=== PATIENT | female | born 1990 | race Caucasian/White ===

== ENCOUNTER 2022-10-02 07:08 | Outpatient (CLI) | payer SELFPAY ==
--- NOTE | 2022-10-02 07:15 | CRLHL7_ITS ---
For Patients: As a result of the Cures Act, medical imaging exams and procedure reports are released immediately into your electronic medical record. You may view this report before your referring provider. If you have questions, please contact your health care provider. INDICATION: First trimester scan, establish dates. COMPARISON: None. TECHNIQUE: Real-time salinas-scale imaging of the pelvis was performed. FINDINGS: Sonographic imaging demonstrates a single living intrauterine gestation. The embryo demonstrates a regular cardiac rate measuring 166 beats per minute. The embryo`s crown-rump length measurement of 4.2 cm corresponds to a gestational age of 11 weeks 0 days with a sonographic due date of 04/23/2023. There is a normal-appearing yolk sac which measures 5.1 millimeters on image 6144, series 1. There are no gross abnormalities noted within the embryo at this early state of development. The gestational sac has a normal appearance. There is a 2.5 x 1.2 x 1.5 cm right-sided perigestational hemorrhage. The amount of fluid within the sac appears appropriate for gestational age. The cervix is closed. The myometrium appears normal. The ovaries are not visualized. There are no suspicious fluid collections noted in the cul-de-sac. IMPRESSION: Single living intrauterine with sonographic gestational age 11 weeks 0 days and sonographic due date 04/23/2023. Right-sided subchorionic hemorrhage measuring 2.5 x 1.2 x 1.5 cm. Dictated by Herb Swanson MD @ 10/02/2022 9:28:33 AM (Electronically Signed)
== END 2022-10-02 07:09 | disposition home or self-care (01) ==
PROVIDERS: Visit Provider Physician Assistant
DX: Z34.91 Encounter for supervision of normal pregnancy, unspecified, first trimester (principal); Z3A.08 8 weeks gestation of pregnancy
CPT/HCPCS: 76817

== ENCOUNTER 2022-10-02 08:35 | Outpatient (CLI) | payer SELFPAY ==
[2022-10-02 15:22] LABS: Chlamydia DNA Amplified* NOT DETECTED (No Detected); GC DNA Amplified* NOT DETECTED (No Detected)
== END 2022-10-02 08:36 | disposition home or self-care (01) ==
PROVIDERS: Visit Provider Registered Nurse
DX: Z34.90 Encounter for supervision of normal pregnancy, unspecified, unspecified trimester (principal)
CPT/HCPCS: 86592; 86703; 86762; 86787; 86803; 86850; 86870; 86880; 86900; 86901; 86905; 86906; 87086; 87340; 87491; 87591

== ENCOUNTER 2022-11-21 13:46 | Outpatient (CLI) | payer SELFPAY ==
--- NOTE | 2022-11-21 14:00 | CRLHL7_ITS ---
For Patients: As a result of the Century Cures Act, medical imaging exams and procedure reports are released immediately into your electronic medical record. You may view this report before your referring provider. If you have questions, please contact your health care provider. INDICATION: Evaluate anatomy. COMPARISON: 10/02/2022 TECHNIQUE: Real time salinas scale imaging of the fetus was performed as well as color Doppler analysis of the umbilical vessels. FINDINGS: Sonographic imaging demonstrates a single living intrauterine gestation. Fetus demonstrates a regular cardiac rate of 159 beats per minute. Fetus has a variable position. The placenta lies posteriorly without evidence of placenta previa. The edge of the placenta is located 7.2 cm 7.2 cm from the placenta. Amniotic fluid volume appears normal. Single deepest vertical pocket: 4.5 cm. The cervix is closed and measures 4.1 cm in length. The composite ultrasound gestational age is calculated at 18 weeks 3 days with an estimated sonographic due date of 04/21/2023. The estimated weight is 219 grams which lies at the 36th %. The following biometric measurements were obtained: Biparietal diameter: 4.0 cm/18 weeks 1 day 53rd% Head circumference: 15.6 cm/18 weeks 4 days 63rd% Abdominal circumference: 12.3 cm/18 weeks 0 days 41st% Femur length: 2.6 cm/18 weeks 0 days 35th% The HC/AC ratio measures: 1.27 range (1.08-1.27) On anatomic survey, there is a normal appearance of the cerebral ventricles, cavum septi pellucidi, cisterna magna and cerebellum. Incomplete visualization facial views due to position. The cervical, thoracic and lumbar spine are well visualized and appear normal. Incomplete visualization of the cardiac views due to position. The diaphragm and stomach appear normal. The kidneys and bladder also appear normal. There is a normal three-vessel cord and cord insertion site. The four extremities appear normal. IMPRESSION: Concordance of clinical and sonographic dating. Incomplete visualization of the facial structures and heart structures due to position. Remainder of the anatomic survey is normal. Short-term follow-up recommended. Dictated by Herb Swanson MD @ 11/22/2022 9:52:28 AM (Electronically Signed)
== END 2022-11-21 13:47 | disposition home or self-care (01) ==
LOC: US 13:47
PROVIDERS: Visit Provider Physician Assistant
DX: Z34.92 Encounter for supervision of normal pregnancy, unspecified, second trimester (principal); Z3A.18 18 weeks gestation of pregnancy
CPT/HCPCS: 76805

== ENCOUNTER 2022-12-06 10:48 | Outpatient (CLI) | payer SELFPAY ==
--- NOTE | 2022-12-06 11:00 | CRLHL7_ITS ---
For Patients: As a result of the Century Cures Act, medical imaging exams and procedure reports are released immediately into your electronic medical record. You may view this report before your referring provider. If you have questions, please contact your health care provider. INDICATION: FOLLOW UP FOR MISSED ANATOMY COMPARISON: 11/21/2022 TECHNIQUE: Real time salinas scale imaging of the fetus was performed. FINDINGS: Sonographic imaging demonstrates a single living intrauterine gestation. Fetus demonstrates a regular cardiac rate of 152 beats per minute. Fetus has a variable position. The placenta lies posteriorly. Amniotic fluid volume appears normal. Single deepest vertical pocket: 5.0 cm. The cervix is closed and measures 4.4 cm in length. Normal nose, lips, face and profile. Normal four-chamber heart, stomach, LVOT, RVOT, three-vessel view and aortic arch. IMPRESSION: Normal face and heart. Dictated by Herb Swanson MD @ 12/06/2022 3:48:17 PM (Electronically Signed)
== END 2022-12-06 10:49 | disposition home or self-care (01) ==
LOC: US 10:48
PROVIDERS: Visit Provider Obstetrics & Gynecology
DX: O35.AXX0 Maternal care for other (suspected) fetal abnormality and damage, fetal facial anomalies, not applicable or unspecified (principal)
CPT/HCPCS: 76816

== ENCOUNTER 2023-01-24 08:38 | Outpatient (CLI) | payer MEDICAID, SELFPAY | END 2023-01-24 08:39 | disposition home or self-care (01) | LOC: NFLDREF 01-31 09:27 | PROVIDERS: Visit Provider Obstetrics & Gynecology | DX: Z34.90 Encounter for supervision of normal pregnancy, unspecified, unspecified trimester (principal) | CPT/HCPCS: 86592 ==

== ENCOUNTER 2023-02-19 10:45 | Outpatient (RCR) | payer MEDICAID, SELFPAY ==
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
== END 2023-06-19 23:59 | disposition home or self-care (01) ==
PROVIDERS: Visit Provider Obstetrics & Gynecology
DX: M54.9 Dorsalgia, unspecified (principal); O26.899 Other specified pregnancy related conditions, unspecified trimester; O99.891 Other specified diseases and conditions complicating pregnancy; M25.559 Pain in unspecified hip; R29.898 Other symptoms and signs involving the musculoskeletal system; Z74.09 Other reduced mobility; Z51.89 Encounter for other specified aftercare
CPT/HCPCS: 97110; 97162

== ENCOUNTER 2023-03-14 08:50 | Outpatient (CLI) | payer MEDICAID, SELFPAY | END 2023-03-14 08:51 | disposition home or self-care (01) | LOC: NFLDREF 03-19 10:27 | PROVIDERS: Visit Provider Obstetrics & Gynecology | DX: O99.019 Anemia complicating pregnancy, unspecified trimester (principal); O36.63X0 Maternal care for excessive fetal growth, third trimester, not applicable or unspecified | CPT/HCPCS: 82728 ==

== ENCOUNTER 2023-03-18 09:56 | Outpatient (CLI) | payer MEDICAID, SELFPAY ==
[2023-03-18 10:21] VITALS: BP 114/63; PULSE 107; TEMP 37.1
[2023-03-18 10:28] VITALS: PULSE 107; O2SAT 96
[2023-03-18 10:36] VITALS: PULSE 237; O2SAT 96
[2023-03-18 10:41] VITALS: PULSE 109; O2SAT 96
[2023-03-18 11:06] LABS: Appearance Urine Cloudy (Clear); Bilirubin Urine Negative (Negative); Blood Urine Negative (Negative); Color Urine Yellow (Yellow); Glucose Urine Negative (Negative); Ketones Urine Negative (Negative); Leukocyte Esterase Urine 1+ (Negative); Nitrite Urine Positive (Negative); Protein Urine Trace (Negative); Urobilinogen Urine 0.2 (0.2-1.0)
[2023-03-18] MEDS: LACTATED RINGERS 1000 ML 1,000 ML IV (11:12)
[2023-03-18 11:45] LABS: Bacteria Urine Many; RBC Urine 0-2 (0-2); Squamous Epithelial Cell Urine Few (None-Few)
[2023-03-18 11:46] LABS: PCR FLU A POSITIVE PCR FLU A (Negative); PCR FLU B Negative PCR FLU B (Negative); PCR RSV Negative PCR RSV (Negative); SARS PCR* Negative SARS-CoV-2 (Negative)
--- NOTE | 2023-03-18 12:08 | P.OBLDTN_ITS ---
OB - Triage/Final Diagnosis Visit Information Time Seen by Provider: 12:08 Date Seen: 03/18/23 Date of evaluation: 03/18/23 Narrative: The patient is a 32 year old 10 para 3063 at 34 6/7 weeks gestation by early ultrasound, who presents with upper respiratory symptoms. Has been experiencing congestion, shortness of breath, and cough since yesterday. Her 2-year-old is also ill with similar symptoms. Evaluation Laboratory results: Laboratory Tests 03/18/23 Range/Units 10:41 Urine Color Yellow (Yellow) Urine Appearance Cloudy A (Clear) Urine pH 7.0 (5.0-8.5) Ur Specific Alpine 1.020 (1.000-1.030) Urine Protein Trace A (Negative) Urine Glucose (UA) Negative (Negative) Urine Ketones Negative (Negative) Urine Blood Negative (Negative) Urine Nitrite Positive A (Negative) Urine Bilirubin Negative (Negative) Urine Urobilinogen 0.2 (0.2-1.0) Ur Leukocyte Esterase 1+ A (Negative) Urine RBC 0-2 (0-2) Urine WBC 10-25 A (0-5) Ur Squamous Epith Cells Few (None-Few) Urine Bacteria Many A (None) SARS-CoV-2 (PCR) Negative SARS-CoV-2 (Negative) Influenza Type A (PCR) POSITIVE PCR FLU A A (Negative) Influenza Type B (PCR) Negative PCR FLU B (Negative) RSV (PCR) Negative PCR RSV (Negative) Vital signs: Vital Signs - 24 hr 03/18/23 10:21 03/18/23 10:21 03/18/23 10:28 Temperature 98.8 F Pulse Rate 107 H Blood Pressure 114/63 Pulse Oximetry 96 03/18/23 10:36 03/18/23 10:41 Temperature Pulse Rate Blood Pressure Pulse Oximetry 96 96 Fetus (Single) Heart Rate Baseline: 160 Alf Variability: Moderate (6-25) Monitor Accelerations: Present Monitor Decelerations: None Final Diagnosis (1) Influenza A: Status: Acute (2) UTI (urinary tract infection): Status: Acute
--- NOTE | 2023-03-18 12:45 | PC.OBNST ---
NST Note NST Note Start: 03/18/23 10:08 Freq: ONCE Status: Active Protocol: Document 03/18/23 12:37 AROLDO (Rec: 03/18/23 12:45 AROLDO [id number]) NST Note 10 Para (# of births) 3 EDC 04/23/23 Gestational Age In Weeks & Days 34 Weeks & 6 Days Patient Presented with Complaint(s) of Decreased movement,Other Other Complaints cough and chest congestion that started yesterday. Reactive Yes Appropriate for Gestational Age Yes RN Stoney Carney, RN Date 03/18/23 Reactive Yes Appropriate for Gestational Age Yes HANNA West, HANNA Date 03/18/23 OB NST charge Yes Complete NST Note via Write Note Yes The provider's electronic signature indicates the NST is reactive/appropriate for gestational age. *Note to provider: If an addendum is required, open the patient's chart and click on the note under the Nurse/Allied Health tab.
== END 2023-03-18 12:31 | disposition home or self-care (01) ==
LOC: OB OUT 09:56 → OB 09:56
PROVIDERS: Visit Provider Obstetrics & Gynecology
DX: O36.8130 Decreased fetal movements, third trimester, not applicable or unspecified (principal); Z3A.34 34 weeks gestation of pregnancy
CPT/HCPCS: 59025; 81003; 81015; 87086; 87631; G0463; J7120

== ENCOUNTER 2023-03-28 13:55 | Outpatient (CLI) | payer MEDICAID, SELFPAY ==
--- NOTE | 2023-03-28 14:00 | CRLHL7_ITS ---
For Patients: As a result of the Century Cures Act, medical imaging exams and procedure reports are released immediately into your electronic medical record. You may view this report before your referring provider. If you have questions, please contact your health care provider. INDICATION: Large for dates TECHNIQUE: Limited transabdominal two-dimensional salinas-scale ultrasound examination. COMPARISON: 12/06/2022, 11/21/2022 10/02/2022 FINDINGS: There is a living fetus vertex lie with gestational age of 36 weeks 2 days by 1st trimester ultrasound dating and 38 weeks 4 days by today`s measurements. EDC based on 1st trimester ultrasound dating is 04/23/2023. BPD: 9.6 cm, 39 weeks 1 day Head circumference: 34.2 cm, 39 weeks 3 days Abdominal circumference: 35.4 cm, 39 weeks 2 days Femur length: 7.1 cm, 36 weeks 2 days The weight is estimated at 3552 grams, the 97th percentile. The biophysical profile score is 8/8. The heart rate is measured at 157 beats per minute and the rhythm appears regular. The amniotic fluid volume is above normal limits with single deepest pocket or 10.1 cm. BINA is 36 cm. The placenta is posterior and superior to the cervical os. There is no evidence of previa. The cervical length is normal at roughly 3.5 cm. IMPRESSION: 1. Living fetus vertex lie with gestational age of 36 weeks 2 days by 1st trimester ultrasound dating and 30 weeks 4 days by today`s measurements. EDC based on 1st trimester ultrasound dating is 04/23/2023. 2. weight estimated at 3552 grams, the 97th percentile. 3. Biophysical profile score is 8/8. 4. New polyhydramnios with single deepest pocket of 10.1 cm and BIAN of 36 cm. Dictated by Arnaldo Holt MD @ 03/31/2023 7:53:37 AM (Electronically Signed)
== END 2023-03-28 13:56 | disposition home or self-care (01) ==
LOC: US 13:56
PROVIDERS: Visit Provider Obstetrics & Gynecology
DX: O36.63X0 Maternal care for excessive fetal growth, third trimester, not applicable or unspecified (principal); O40.3XX0 Polyhydramnios, third trimester, not applicable or unspecified; Z3A.36 36 weeks gestation of pregnancy
CPT/HCPCS: 76816; 76819; 87081; 87653

== ENCOUNTER 2023-03-31 17:52 | Outpatient (CLI) | payer MEDICAID, SELFPAY | END 2023-03-31 17:53 | disposition home or self-care (01) | LOC: LAB 17:53 | PROVIDERS: Visit Provider Obstetrics & Gynecology | DX: O40.3XX0 Polyhydramnios, third trimester, not applicable or unspecified (principal); Z3A.37 37 weeks gestation of pregnancy | CPT/HCPCS: 36415; 86850; 86870; 86880; 86900; 86901; 86922 ==

== ENCOUNTER 2023-04-02 07:12 | Inpatient (IN) | payer MEDICAID, SELFPAY ==
[2023-04-02] VITALS (13 sets, daily range): BP systolic 88–110; BP diastolic 50–64; PULSE 71–94; RESP 12–20; TEMP 36.6–37; O2SAT 97; BMI 30.9
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
[2023-04-02 08:26] LABS: Basophils Absolute Auto 0.01 K/uL (0.00-0.30); Basophils Percent Auto 0.1 % (0.0-3.0); Eosinophils Absolute Auto 0.06 K/uL (0.00-0.50); Eosinophils Percent Auto 0.7 % (0.0-7.0); Hematocrit 32.5 % (33.0-51.0); Hemoglobin* 10.7 gm/dL (12.0-16.0); Immature Granulocytes Abs Auto 0.04 K/uL (0.00-0.30); Immature Granulocytes Pct Auto 0.4 %; Lymphocytes Absolute Auto 2.14 K/uL (0.90-2.90); Lymphocytes Percent Auto 23.3 % (20-44); Mean Corpuscular HGB Conc 33 gm/dL (32-36); Mean Corpuscular Hemoglobin 29 pg (26-34); Mean Corpuscular Volume 88 fL (80-100); Monocytes Percent Auto 9.2 % (0.0-11.0); Neutrophils Absolute Auto 6.08 K/uL (1.7-7.0); Neutrophils Percent Auto 66.3 % (42.0-72.0); Platelet Count* 246 K/uL (140-440); RDW Coefficient of Variation % 13.4 % (11.5-15.5); Red Blood Count 3.68 m/uL (4.00-5.20); White Blood Count* 9.17 K/uL (4.50-11.00)
[2023-04-02 08:27] LABS: Slide Review Reflex No
[2023-04-02] MEDS: OXYTOCIN 30 unit/500 ML in NS 30 UNIT/500 ML BAG IVPB (08:28)
[2023-04-02] MEDS: LACTATED RINGERS 1000 ML 1,000 ML 125 ML IV ×2 (08:30→17:39)
[2023-04-02] MEDS: AMPICILLIN 2 GM in 0.9 % SODIUM CHLORIDE Mini-bag 100 ML IVPB (08:31)
[2023-04-02] MEDS: AMPICILLIN 1 GM in 0.9 % SODIUM CHLORIDE Mini-bag 100 ML IVPB ×3 (12:27→20:25)
--- NOTE | 2023-04-02 16:28 | P.OBPN_ITS ---
Subjective Time Seen by Provider: 16:28 Date Seen: 04/02/23 Narrative: Anxious Objective Vital Signs: Last Vital Signs Temp 97.8 F 04/02/23 15:20 Pulse 75 04/02/23 15:20 Resp 12 04/02/23 15:20 BP 100/57 L 04/02/23 15:20 Pulse Ox 97 04/02/23 14:20 Pelvic Exam Dilation (cm): 4 Effacement (%): 75 Station: -2 Contractions Monitor mode: External Contraction pattern: Regular Contraction intensity: Moderate Pitocin Rate (mU/min): 12 Assessment Assessment: induction ongoing Station: -2 Amniotic Membrane Status: AROM (Extra karge amount of clear fluid) Status: Category l Heart Rate Baseline: 155 Residential Variability: Moderate (6-25) Monitor Accelerations: Present Monitor Decelerations: Variable Tracing Comments: Just able to AROM. Will stop oxytocin now for a short while due to tachysystole after AROM. Plan Plan: Continue current management. Encourage position changes, ambulation. Will restart Oxytocin when able.
[2023-04-02] MEDS: LACTATED RINGERS 1000 ML 1,000 ML 1200 ML IV (23:55)
[2023-04-03] VITALS (71 sets, daily range): BP systolic 82–135; BP diastolic 47–76; PULSE 64–166; RESP 12–17; TEMP 36.3–36.9; O2SAT 96–100
[2023-04-03] MEDS: LIDOCAINE 2% (PF) 5 ML VIAL EPIDURAL (00:06)
[2023-04-03] MEDS: ROPIVACAINE 0.2% 100 ml 100 ML 12 MG EPIDURAL (00:22)
[2023-04-03] MEDS: PHENYLEPHRINE 100 MCG/ML SYRINGE IVP ×4 (00:23→01:20)
--- NOTE | 2023-04-03 00:25 | PM.ANBPRC ---
[facility] Medical History (Updated 04/02/23 @ 08:26 by Bisi Monaco MD) UTI (urinary tract infection) ?N39.0 - Urinary tract infection, site not specified (ICD-10) Influenza A ?J10.1 - Influenza due to other identified influenza virus with other respiratory manifestations (ICD-10) Precipitous delivery ?O62.3 - Precipitate labor (ICD-10) labor ?O60.00 - labor without delivery, unspecified trimester (ICD-10) ?Z34.90 - Encounter for supervision of normal , unspecified, unspecified trimester (ICD-10) Anemia due to acute blood loss ?D62 - Acute posthemorrhagic anemia (ICD-10) History of blood transfusion (06/23/20) ?Z92.89 - Personal history of other medical treatment (ICD-10) Surgical History Status post primary low transverse section (06/22/20) ?Z98.891 - History of uterine scar from previous surgery (ICD-10) Family History Sister BRCA gene mutation positive Aunt BRCA gene mutation positive Social History What is your current living situation?: I presently have a place to live Problems where you live: no known problems In the past 12 months, utilities in danger of being shut off: no In past 12 months, lack of transportation kept you from medical appts, meetings, work, or getting things needed for daily living: no In the past 12 mos, have been you worried that your food would run out before you had money to buy more?: never true In the past 12 mos, the food you bought just didn't last and you didn't have money to buy more?: never true Smoking Status: Former smoker How often does anyone, including family, friends and others, physically hurt you: never How often does anyone, including family, friends and others, insult or talk down to you: never How often does anyone, including family, friends and others, threaten you with harm: never How often does anyone, including family, friends and others, scream or curse at you: never Little interest or pleasure in doing things: not at all Feeling down, depressed, or hopeless: not at all Meds Home Medications and Allergies Home Medications Medication Instructions Recorded Confirmed Type docosahexaenoic acid 200 mg See Rx Instructions PO .COMPLEX 10/02/22 04/02/23 History capsule ( DHA) acetaminophen 500 mg tablet 1,000 mg PO Q6H PRN 11/01/22 04/02/23 History (Tylenol Extra Strength) calcium carbonate 200 mg calcium 200 mg PO BID PRN 11/01/22 04/02/23 History (500 mg) chewable tablet (Tums) loratadine 10 mg disintegrating 10 mg PO QDAY 12/06/22 04/02/23 History tablet (Alavert) docusate sodium 50 mg capsule 50 mg PO QDAY 02/10/23 04/02/23 History (Colace Clear) Allergies Allergy/AdvReac Type Severity Reaction Status Date / Time No Known Drug Allergies Allergy Verified 04/02/23 19:45 Results Labs Labs: Laboratory Results - last 24 hr 04/02/23 08:20 WBC 9.17 RBC 3.68 L Hgb 10.7 L Hct 32.5 L MCV 88 MCH 29 MCHC 33 RDW Coeff of Rajesh 13.4 Plt Count 246 Neut % (Auto) 66.3 Lymph % (Auto) 23.3 Pacific % (Auto) 9.2 Eos % (Auto) 0.7 Baso % (Auto) 0.1 Neut # (Auto) 6.08 Lymph # (Auto) 2.14 Pacific # (Auto) 0.80 Eos # (Auto) 0.06 Baso # (Auto) 0.01 Abs Immat Gran (auto) 0.04 Imm/Tot Granulo (auto) 0.4 Vital Signs Vital Signs: Last Vital Signs Temp 98.3 F 04/02/23 23:17 Pulse 107 H 04/03/23 00:23 Resp 18 04/02/23 21:14 BP 90/50 L 04/03/23 00:23 Pulse Ox 97 04/02/23 14:20 Weight: 74.208 kg Height: 154.94 cm Anesthesia Procedures Epidural Insertion Patient Location: OB Start Time: 00:01 Stop Time: 00:35 Start Date: 04/03/23 Stop Date: 01/25/24 Reason for Block: primary anesthetic Patient Position: sitting Performed By: Cain Le Preanesthetic Checklist: IV checked, risks and benefits discussed, surgical consent, monitors and equipment checked, pre-op evaluation, timeout performed and anesthesia consent Prep: chlorhexidine gluconate Monitoring: blood pressure monitoring, party chief, continuous pulse oximetry and heart rate Approach: midline Vertebral Space: lumbar (1-5) Needle Type: Tuohy needle Injection Technique: continuous catheter (catheter) Needle gauge: 17 Needle Length (cm): 10 cm Needle Insertion Depth (cm): 5 Catheter Gauge: 19 Catheter Type: multi-orifice Catheter at skin depth (cm): 10 Test Dose Result: negative and lidocaine 1.5% with epinephrine 1 to 200,000
[2023-04-03] MEDS: AMPICILLIN 1 GM in 0.9 % SODIUM CHLORIDE Mini-bag 100 ML IVPB (00:35)
[2023-04-03] MEDS: SODIUM CHLORIDE 0.9 % (FLUSH) 10 ML SYRINGE IVF (01:14)
[2023-04-03] MEDS: LACTATED RINGERS 1000 ML 1,000 ML 125 ML IV ×2 (02:59→04:42)
--- NOTE | 2023-04-03 03:34 | PM.OBPNL ---
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 She progressed to complete cervical dilation and has been pushing effectively for the past 2 hours. Prior to pushing I re evaluated position with bedside US and found to be LOT, I was able to easily manually rotate head to OA presentation and we started pushing right away afterwards. No movement past station 0 while pushing and mostly caput at this point. I have recommended to proceed with repeat delivery. NST with moderate variability, accelerations and early/variable.Discussed repeat delivery procedure including risks such as bleeding, infection, damage to nearby organs, blood clots. Informed consent signed.
[2023-04-03] MEDS: AZITHROMYCIN 500 MG in 0.9 % SODIUM CHLORIDE 250 ml 250 ML 255 MG IVPB (03:54)
[2023-04-03] MEDS: CEFAZOLIN 2 GM INJ IVP (04:03)
[2023-04-03] MEDS: KETOROLAC 30 MG/ML inj IVP ×4 (05:00→23:23)
--- NOTE | 2023-04-03 05:31 | PM.OBPRCCS ---
OB Delivery Proc Additional Procedures Tubal Ligation at the time of : Yes Procedure Date of procedure: 04/03/23 Pre-op diagnosis: Failed vaginal trial of labor after section, arrest of descent, maternal exhaustion, family planning Post-op diagnosis: same Procedure Done: Global Will [facility] bill your pro fee for this procedure?: Yes Blood Loss Measurement Type: QBL (690) Bakri Used: No Urine Output (mL): 200 Urine Output Comment: Concentrated, blood tinged-from very traumatic nielsen placement Surgeon: Adelita Monaco MD Anesthesia Type: Epidural Findings: FINDINGS: Live-born female infant, cephalic ROT presentation, Apgars 9 and 9 at 1 and 5 minutes respectively. weight 6 pounds 13 ounces. Normal appearing uterus, tubes, and ovaries. Omental adhesions to fascia and anterior peritoneum. Dense adhesions of the bladder to the lower uterine segment. Procedure Name: Repeat low transverse section, bilateral salpingectomy Procedure Description: PROCEDURE: After obtaining informed consent, the patient was taken to the operating room where epidural anesthesia was found to be adequate. She was prepared and draped in the normal sterile fashion in the dorsal supine position with a leftward tilt. A Pfannenstiel skin incision was made with a scalpel along the line of the patient's previous Pfannenstiel scar. This incision was carried down to the underlying layer of fascia with the scalpel. The fascia was incised in the midline and the incision extended laterally. The rectus muscles were then in the midline. Omental adhesion identified and a avascular plane was identified and opened, the edges of omentum were and coagulated utilizing cautery. Hemostasis secured. The adhesions between the bladder and lower uterine segment were taken down sharply with Metzenbaum scissors. The Kenny O retractor was then placed into the incision. The lower uterine segment was then incised in a transverse fashion with the scalpel. Upon entry into the uterus, clear amniotic fluid was noted. The uterine incision was extended cephalo caudally with blunt finger fractionation. The infant's head was delivered atraumatically, followed by the remainder of the 's body. The nose and mouth were suctioned with the bulb suction. The cord was doubly clamped and cut, and the was handed off the field to [facility] for evaluation. The placenta was delivered spontaneously with umbilical cord traction and fundal massage. The uterus was cleared of all clots and debris. The uterine incision was reapproximated in a running locking fashion with a 0 Vicryl suture. A 2nd layer of the same suture was used to imbricate in horizontal fashion. Small bleeding from hysterotomy edges managed with figure of 8 sutures utilizing 2-0 Chromic. Small bleeding vessels from adhesions between the lower uterine serosa and bladder reflection cauterized and Tara also placed to further secure hemostasis. Bladder was thoroughly evaluated during case and found intact. The uterus was then exteriorized. Both fallopian tubes were identified to their fimbrial ends. Attention was 1st turned to the left fallopian tube which was elevated with 2 Theresa clamps and starting from the fimbrial end up to the cornual region the mesosalpinx was sequentially clamped, coagulated and cut utilizing handheld LigaSure bipolar device. Hemostasis secured. Same procedure performed on the right side, hemostasis secured. The uterus was returned to the abdomen. The gutters were inspected and cleared of blood clots. All instruments and retractors were removed. The anterior peritoneum was reapproximated in a running fashion with a 3-0 Vicryl suture. The subfascial tissues were carefully inspected and hemostasis assured. The fascia was reapproximated in a running fashion with a looped 0 Vicryl suture. The subcutaneous tissues were copiously irrigated. Hemostasis was assured. The subcutaneous fat layer was reapproximated with Vicryl 3-0 in 2 layers. The skin was closed in a subcuticular fashion with 4-0 Monocryl. LiquiBand and dressing were applied. The patient tolerated the procedure well. Sponge, lap, needle, and instrument counts were reported as correct x2. The patient was taken to the recovery room, awake, and in stable condition. She did receive 2 grams of IV Ancef and 500mg of Azithromycin preoperatively. Complications: None Pathology: specimen obtained, sent to pathology (Placenta and bilateral fallopian tubes) Surgery Debrief Performed: Yes Condition: stable Disposition: floor
--- NOTE | 2023-04-03 06:11 | W.ANESCHARGE ---
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
--- NOTE | 2023-04-03 06:12 | P.NB_ITS ---
Nerve Block Nerve Block Time Seen by Provider: 05:50 Date Seen: 03/17/23 Type of block requested by surgeon for post-operative analgesia: TAP Side: bilateral Time out performed: Yes Verification of patient name: Yes Verification of date of : Yes Name of person performing procedure: Cain Le Continuous monitoring Was continuous monitoring of O2 sat, B/P, environmental monitoring technician, recorded every 15 minutes?: Yes Procedure Checklist: sterile prep, needles and gloves Ultrasound guided. Images saved: Yes Medications given in 5ml increments after negative aspiration: Marcaine %: 0.25 mL: 30 Needle gauge: 20 and Exparel mL: 10 Needle gauge: 20 Patient tolerated procedure well: Yes Block Charges Block Charge (with Pro Fee): TAP Bilateral Use of Ultrasound Machine for Block: Yes- US Guidance/pain block
[2023-04-03] MEDS: DOCUSATE SODIUM 100 MG CAPSULE PO (09:10)
[2023-04-03] MEDS: ONDANSETRON 2 MG/ML inj 4 MG IVP (12:35)
[2023-04-03 13:06] LABS: Basophils Percent Auto 0.1 % (0.0-3.0); Hematocrit 26.1 % (33.0-51.0); Hemoglobin* 8.6 gm/dL (12.0-16.0); Immature Granulocytes Pct Auto 0.2 %; Lymphocytes Percent Auto 9.9 % (20-44); Mean Corpuscular HGB Conc 33 gm/dL (32-36); Mean Corpuscular Hemoglobin 29 pg (26-34); Mean Corpuscular Volume 89 fL (80-100); Monocytes Percent Auto 5.5 % (0.0-11.0); Neutrophils Percent Auto 84.3 % (42.0-72.0); Platelet Count* 191 K/uL (140-440); RDW Coefficient of Variation % 13.5 % (11.5-15.5); Red Blood Count 2.93 m/uL (4.00-5.20); White Blood Count* 13.49 K/uL (4.50-11.00)
[2023-04-03] MEDS: LACTATED RINGERS 500 ML IV (13:06)
[2023-04-03 13:10] LABS: Slide Review Reflex No
--- NOTE | 2023-04-03 16:39 | P.OBPN_ITS ---
OB - PN:Subj Subjective Time Seen by Provider: 15:00 Date Seen: 04/03/23 Interval history: Ana is a 32-year-old G10 now P4-0-6-4 woman who is day 0 status post repeat with bilateral salpingectomy/failed TOLAC for indication of arrest of descent early this morning. She has a history notable for hemorrhage after her 3rd delivery, anti K antibodies, and polyhydramnios. She reports to her nurse that she has been feeling dizzy and nauseous. At time of her interview, she reports feeling okay. She has not been up walking around. Dockery catheter still in place. She has been able to tolerate a regular diet, and is passing flatus. Pain is adequately controlled. OB - PN: Obj Exam Physical Exam: Vital signs: Temp Pulse Resp BP Pulse Ox O2 Del Method 97.5 F L 78 12 94/62 96 Room Air 04/03/23 15:41 04/03/23 15:41 04/03/23 16:14 04/03/23 15:41 04/03/23 15:41 04/03/23 15:41 Narrative: Blood pressures are generally 90-100 systolic, 60s diastolic. No tachycardia. Urine output is adequate, with 375 mL in her Dockery bag in the last 7 hours. General: Pleasant, no acute distress, lying in bed, accompanied by her mother and sister Abdomen: Normoactive bowel sounds in all 4 quadrants, no distension, soft, nontender, fundus deviated to the patient's right and 3 cm above the umbilicus. Firm fundal massage results in approximately 25 mL of lochia saturating her pad. Lower extremities: SCDs in place Urinary Catheter Management: 2-way Urethral: Cath placed during this visit: yes, but has since been removed by the nurse Reason for continuing: surgical procedure Insertion date: 04/03/23 Insertion time: 03:30 Removal date: 04/03/23 Removal time: 15:30 OB - PN: Obj Data Labs Labs: Laboratory Results - last 24 hr 04/03/23 13:00 WBC 13.49 H RBC 2.93 L Hgb 8.6 L Hct 26.1 L MCV 89 MCH 29 MCHC 33 RDW Coeff of Rajesh 13.5 Plt Count 191 Neut % (Auto) 84.3 H Lymph % (Auto) 9.9 L [place] % (Auto) 5.5 Eos % (Auto) 0.0 Baso % (Auto) 0.1 Neut # (Auto) 11.40 H Lymph # (Auto) 1.30 [place] # (Auto) 0.70 Eos # (Auto) 0.00 Baso # (Auto) 0.00 Abs Immat Gran (auto) 0.00 Imm/Tot Granulo (auto) 0.2 Hemoglobin is down from 10.7 yesterday morning OB - PN: A/P Delivery Assessment and Plan (1) Maternal atypical antibody complicating : Problem details: Anti-K Positive antibody screen Status: Acute (2) S/P repeat low transverse : Status: Acute Assessment and Plan: Continuing anemia, with hemoglobin down slightly since yesterday, consistent with intraoperative blood loss. She is to continue iron supplements every other night. We will manage her dizziness at this time with a bolus of LR, and continue to monitor outputs regularly. Given her lab work, I do not suspect that her dizziness and nausea is secondary to hemorrhage. Continue to follow symptoms as she advances in her ability to ambulate postoperatively. Repeat CBC tomorrow. Plan Plan: routine care
[2023-04-03] MEDS: ACETAMINOPHEN 500 MG TABLET 1000 MG PO ×2 (18:27→23:23)
[2023-04-03] MEDS: FERROUS SULFATE 325 MG TABLET PO (18:31)
[2023-04-04] VITALS (10 sets, daily range): BP systolic 89–99; BP diastolic 58–66; PULSE 63–98; RESP 16–17; TEMP 36.7–36.8; O2SAT 97–98
[2023-04-04] MEDS: ACETAMINOPHEN 500 MG TABLET 1000 MG PO ×3 (06:17→21:22)
[2023-04-04] MEDS: KETOROLAC 30 MG/ML inj IVP (06:17)
--- NOTE | 2023-04-04 08:02 | P.OBPN_ITS ---
OB - PN:Subj Subjective Date Seen: 04/04/23 Interval history: Ana is a 32 yo status post repeat after a TOLAC. Narrative: The patient feels well.? The pain is well controlled with current medications.? She has no new complaints.? She is bottle feeding and reports things are going well.? Overall the patient has done well.? Vitals have been stable.? Her BP is on the lower side, but she states this is normal for her and denies any dizziness this AM. She has remained afebrile.? Has a good appetite, is tolerating a general diet.? She is passing gas and has not had a bowel movement.? She is ambulating and denies any dizziness.? Has [Small] amount of rubra lochia.? The nurses have expressed concern over her ability to void. Catheter was removed yesterday, and per report, was difficult to remove. Tissue s quite swollen per report from pushing. She has been straight cathed since, but urine was concentrated and only a small amount out. Per report, bladder scan done after was WNL. Pt admits to not being good at drinking water frequently or staying well hydrated. OB - PN: Obj Exam Physical Exam: Vital signs: Temp Pulse Resp BP Pulse Ox O2 Del Method 98.3 F 98 16 89/58 L 98 Room Air 04/04/23 02:40 04/04/23 02:40 04/04/23 05:14 04/04/23 02:40 04/04/23 02:40 04/04/23 02:40 Narrative: VSS.? Afebrile? GENERAL APPEARANCE:? normal affect, alert, no distress? MOOD:? appropriate? HEENT: normocephalic, neck supple, full ROM? CHEST:? Symmetrical chest wall movement.? Normal respiratory effort.? Clear to auscultation? HEART:? regular rate and rhythm? ABDOMEN:? soft, non-tender. Uterine fundus is firm, 2 below Umbilicus, Midline and is appropriate for the stage of recovery.? Bowel sounds present.? : Labia - moderate edema noted. EXTREMITIES:? normal and no edema? SKIN: warm, dry.? ? Incision clean/dry/well approximated.? No signs of infection noted.? Urinary Catheter Management: 2-way Urethral: Cath placed during this visit: yes, but has since been removed by the nurse Reason for continuing: not indwelling catheter Insertion date: 04/03/23 Insertion time: 03:30 Removal date: 04/03/23 Removal time: 15:30 OB - PN: Obj Data Labs Labs: Laboratory Results - last 24 hr 04/03/23 04/04/23 13:00 06:45 WBC 13.49 H RBC 2.93 L Hgb 8.6 L 8.0 L Hct 26.1 L MCV 89 MCH 29 MCHC 33 RDW Coeff of Rajesh 13.5 Plt Count 191 Neut % (Auto) 84.3 H Lymph % (Auto) 9.9 L [place] % (Auto) 5.5 Eos % (Auto) 0.0 Baso % (Auto) 0.1 Neut # (Auto) 11.40 H Lymph # (Auto) 1.30 [place] # (Auto) 0.70 Eos # (Auto) 0.00 Baso # (Auto) 0.00 Abs Immat Gran (auto) 0.00 Imm/Tot Granulo (auto) 0.2 OB - PN: A/P Delivery Assessment and Plan (1) Maternal atypical antibody complicating : Problem details: Anti-K Positive antibody screen Status: Acute (2) S/P repeat low transverse : Status: Acute (3) Unable to void: Status: Acute Plan day: 1 Plan: routine care Comments: Assessment/Plan? G 10 P 4 status post uncomplicated repeat .? ?? 1.? Continue route PP cares? 2. Anticipate discharge home tomorrow or the following day per pt preference? 3.? Acute anemia.? Iron supplement ordered 4. Unable to void since catheter removed yesterday. Straight cathed since. -Replace nielsen catheter until tomorrow. -ice packs as needed to help with swelling -may use lidocaine gel as needed for catheter placement/pt comfort 5. Low urine output, concentrated. -likely r/t limited oral intake by patient -pt encouraged to hydrate -will restart IV fluids at 125 ml/hr X at least 1 bag of IV fluid instead of fluid bolus at this time -low concern for preeclampsia r/t low BP or other cardiac issues, but RN aware to monitor for. -Will continue to monitor urine output. ?
[2023-04-04] MEDS: lidocaine HCL 2 % JELLY (TOP) STERILE 6 ML TOPICAL (08:41)
[2023-04-04] MEDS: DOCUSATE SODIUM 100 MG CAPSULE PO (08:41)
[2023-04-04] MEDS: LACTATED RINGERS 1000 ML 1,000 ML 125 ML IV (08:41)
[2023-04-04] MEDS: FERROUS SULFATE 325 MG TABLET PO (09:41)
[2023-04-04] MEDS: IBUPROFEN 600 MG TABLET PO ×2 (11:50→19:41)
[2023-04-05] MEDS: IBUPROFEN 600 MG TABLET PO ×2 (02:11→07:49)
[2023-04-05 02:28] VITALS: BP 100/66; PULSE 62; RESP 16; TEMP 36.7; O2SAT 98
[2023-04-05] MEDS: ACETAMINOPHEN 500 MG TABLET 1000 MG PO ×2 (05:00→11:43)
[2023-04-05] MEDS: FERROUS SULFATE 325 MG TABLET PO (07:48)
[2023-04-05] MEDS: DOCUSATE SODIUM 100 MG CAPSULE PO (07:49)
[2023-04-05 08:00] VITALS: BP 102/67; PULSE 65; RESP 16; TEMP 36.4; O2SAT 98
--- NOTE | 2023-04-05 08:44 | PM.OBPNVD1 ---
OB - PN:Subj Subjective Date Seen: 04/05/23 Interval history: Ana is a 32-year-old G10 now P4-0-6-4 woman who is day 2 status post repeat with bilateral salpingectomy/failed TOLAC for indication of arrest of descent early this morning. She has a history notable for hemorrhage after her 3rd delivery, anti K antibodies, and polyhydramnios. She had urinary retention noted yesterday, and had catheter reinserted. OB - PN: Obj Exam Physical Exam: Vital signs: Temp Pulse Resp BP Pulse Ox O2 Del Method 97.6 F 65 16 102/67 98 Room Air 04/05/23 08:00 04/05/23 08:00 04/05/23 08:00 04/05/23 08:00 04/05/23 08:00 04/05/23 08:00 Urinary Catheter Management: 2-way Urethral: Cath placed during this visit: yes, but has since been removed by the nurse Reason for continuing: not indwelling catheter Insertion date: 04/03/23 Insertion time: 03:30 Removal date: 04/03/23 Removal time: 15:30 OB - PN: A/P Delivery Assessment and Plan (1) Maternal atypical antibody complicating : Problem details: Anti-K Positive antibody screen Status: Acute (2) S/P repeat low transverse : Status: Acute (3) Unable to void: Status: Acute
--- NOTE | 2023-04-05 09:27 | PM.OBDSVD1 ---
DS: Providers Provider Date Seen: 04/05/23 Date of admission: 04/02/23 07:12 Primary care physician: Not a Local Provider Admitting Clinician: Bisi Monaco MD Attending Physician on discharge: Cindy Ramos MD Date of Discharge: 04/05/23 DS: Diagnosis Discharge Diagnosis (1) S/P repeat low transverse : Status: Acute (2) Anemia due to acute blood loss: Status: Acute Problem details: Hb 8.0 on 04/04/23 (3) Status post bilateral salpingectomy: Status: Acute (4) Family history of BRCA gene mutation: Status: Acute Exam Narrative: Exam Narrative: General: Pleasant, no acute distress Heart: Regular rate and rhythm, no murmur or gallop Lungs: Clear to auscultation bilaterally Abdomen: Normoactive bowel sounds. Incision clean, dry, and intact. Soft, nontender, fundus deviated to patient's right and 2 cm above umbilicus. Lower extremities: 1+ edema bilaterally, no erythema Const: Vital Signs, click to edit/add: Vital Signs - 24 hr 04/04/23 16:35 04/04/23 21:26 04/05/23 02:28 Temperature 98.3 F 98.1 F 98.1 F Pulse Rate [Pulse Oximeter] 75 63 62 Respiratory Rate 16 16 16 Blood Pressure [Ri ght Arm] 97/62 99/66 100/66 Pulse Oximetry 98 97 98 Oxygen Delivery Me thod Room Air Room Air Room Air 04/05/23 08:00 Temperature 97.6 F Pulse Rate [Pulse Oximeter] 65 Respiratory Rate 16 Blood Pressure [Ri ght Arm] 102/67 Pulse Oximetry 98 Oxygen Delivery Me thod Room Air OB - DS: Summary Hospital Course Hospital Course: Ana is a 32-year-old G10 now P4-0-6-4 woman who is day 2 status post repeat with bilateral salpingectomy/failed TOLAC for indication of arrest of descent. She has a history notable for hemorrhage after her 3rd delivery, anti K antibodies, and polyhydramnios. She had urinary retention noted yesterday, and had catheter reinserted. She had an uncomplicated repeat delivery with bilateral salpingectomy. She delivered a viable female infant. She is bottle feeding. the patient had dizziness on the afternoon of her , which resolved with IV hydration. She was found to have anemia with a hemoglobin of 8.0 on postoperative day 1, and has been maintained on oral iron. She also had urinary retention on postoperative day 1, and catheter was reinserted. This morning, on postoperative day 2, she reports that catheter was removed and she was able to void normally. She denies any heavy bleeding. Pain is adequately managed with ibuprofen and oxycodone. She is ambulating without difficulty. She is tolerating a regular diet and has passed flatus. Peripartum Data Procedures: Procedures Operation Date: 04/03/23 04:30 Actual Procedure Side Surgeon p Repeat Low Transverse Section and Bilateral Salpingectomy Not Applicable Bisi Monaco MD Gender: Female Time Spent with Patient Time attestation: Total time spent providing and/or coordinating discharge services: Discharge Plan Discharge Disposition: Home, Self-Care Date of Admission: 04/02/23 07:12 Primary Care Provider: Provider,Not a Local Condition: Stable Anticipated Discharge Date/Time: 04/05/23 09:36 Discharge Medications: New ferrous sulfate 325 mg (65 mg iron) Tablet 325 mg PO Q OTHER DAY Qty: 0 0RF ibuprofen 600 mg Tablet 600 mg PO Q6H PRN (Reason: Pain) Qty: 60 0RF oxycodone 5 mg Tablet 5 - 10 mg PO Q4H PRN (Reason: Pain) Qty: 20 0RF Continued calcium carbonate [Tums] 200 mg calcium (500 mg) tablet,chewable 200 mg PO BID PRN acetaminophen [Tylenol Extra Strength] 500 mg tablet 1,000 mg PO Q6H PRN omeprazole 40 mg capsule,delayed release(DR/EC) 40 mg PO QDAY Qty: 90 1RF Colace Clear 50 mg capsule 50 mg PO QDAY loratadine [Alavert] 10 mg tablet,disintegrating 10 mg PO QDAY hydroxyzine HCl 50 mg tablet 50 mg PO QHS Qty: 30 0RF Hold Instructions: hasn't filled RX Discontinued DHA 200 mg capsule See Rx Instructions PO .COMPLEX Rx Instructions: 200 orally; ferrous sulfate 324 mg (65 mg iron) tablet,delayed release (DR/EC) 324 mg PO QDAY Qty: 90 1RF Discharge Orders: Discharge Order (Routine); Ordered 04/05/23 Ordered By: Cindy Ramos Patient Education: OB /Bottle Feeding Activity Detail: No lifting greater than 20 [address] for [address] while taking narcotics[address] Nothing per vagina. Discharge Diet: Regular Follow Up Appointments: Provider,Not a Local [Primary Care Provider] - Cindy Ramos MD [Staff Physician] - Forms: [employer] Info Instructions DS:Data Additional Comments Additional comments: Hb 8.0 on POD #1
== END 2023-04-05 12:02 | disposition home or self-care (01) | DRG 540 ==
PROVIDERS: Obstetrics & Gynecology; Admitting Provider Obstetrics & Gynecology; Visit Provider Obstetrics & Gynecology
PROC: 10D00Z1 Extraction of Products of Conception, Low, Open Approach (ICD-10-PCS; CPT 59514; principal; 2023-04-03 04:15)
DX: O40.3XX0 Polyhydramnios, third trimester, not applicable or unspecified (principal); O66.41 Failed attempted vaginal birth after previous cesarean delivery; O99.344 Other mental disorders complicating childbirth; F32.A Depression, unspecified; F43.10 Post-traumatic stress disorder, unspecified; Z91.410 Personal history of adult physical and sexual abuse; O99.824 Streptococcus B carrier state complicating childbirth; O75.81 Maternal exhaustion complicating labor and delivery; O32.4XX0 Maternal care for high head at term, not applicable or unspecified; Z30.2 Encounter for sterilization; G89.18 Other acute postprocedural pain; O36.1930 Maternal care for other isoimmunization, third trimester, not applicable or unspecified; R42 Dizziness and giddiness; R33.9 Retention of urine, unspecified; O90.81 Anemia of the puerperium; D62 Acute posthemorrhagic anemia; O67.9 Intrapartum hemorrhage, unspecified; Z37.0 Single live birth; Z3A.37 37 weeks gestation of pregnancy
CPT/HCPCS: 01967; 01968; 36415; 51798; 64488; 76815; 76942; 85018; 85025; 88302; 88307; 99140; A9270; C9290; J0290; J0456; J0665; J0690; J1885; J2274; J2371; J2405; J2590; J2795; J3010; J7050; J7120

== ENCOUNTER 2023-05-15 10:31 | Outpatient (CLI) | payer MEDICAID, SELFPAY | END 2023-05-15 10:32 | disposition home or self-care (01) | LOC: FRMREF 10:32 | PROVIDERS: Visit Provider Registered Nurse | DX: R39.15 Urgency of urination (principal) | CPT/HCPCS: 87086 ==